=== PATIENT | female | born 1980 | race Caucasian/White ===

== ENCOUNTER 2024-06-07 16:59 | Emergency (ER) | payer SELFPAY ==
[2024-06-07 17:04] VITALS: BP 141/95
[2024-06-07 17:17] LABS: % Basophils 0.5 % (0-2); % Eosinophils 1.2 % (0-6); % Immature Granulocytes 0.3 % (0-0.5); % Lymphocytes 28.5 % (20.5-51.1); % Monocytes 5.8 % (1.7-9.3); % Neutrophils 63.7 % (42.2-75.2); Absolute Basophils 0.1 10^3/uL (0-0.2); Absolute Eosinophils 0.1 10^3/uL (0-0.7); Absolute Monocytes 0.6 10^3/uL (0.1-0.6); Absolute Neutrophils 6.7 10^3/uL (1.4-6.5); Hematocrit 40.7 % (37.0-47.0); Hemoglobin 14.1 g/dL (12.0-16.0); Mean Corp Hgb Conc. 34.6 g/dL (33.0-37.0); Mean Corpuscular Hgb 31.6 pg (27.0-31.0); Mean Corpuscular Volume 91.3 fL (81.0-99.0); Mean Platelet Volume 10.3 fL (7.4-10.4); Nucleated Red Blood Cells % 0 %; Platelet Count 282 10^3/uL (130-400); Red Blood Cell Count 4.46 10^6/uL (4.20-5.40); Red Cell Dist. Width 12.7 % (11.5-14.5); White Blood Cell Count 10.6 10^3/uL (4.8-10.8)
[2024-06-07 17:35] LABS: ALT (SGPT) 19 U/L (0-35); AST (SGOT) 24 U/L (14-36); Albumin 4.8 g/dl (3.5-5.0); Alkaline Phosphatase 41 U/L (38-126); Blood Urea Nitrogen 7 mg/dl (7-17); Carbon Dioxide 25 mmol/L (22-30); Chloride 103 mmol/L (98-107); Glucose 107 mg/dl (70-99); Potassium 3.5 mmol/L (3.5-5.1); Sodium 138 mmol/L (135-145); Total Bilirubin 0.3 mg/dl (0.2-1.3); eGFR > 60.00
[2024-06-07 17:41] LABS: Troponin I < 0.012 ng/ml
[2024-06-07 19:05] VITALS: BP 138/94
--- NOTE | 2024-06-07 19:27 | ED.GENMED ---
History of Present Illness
General
Chief Complaint: Heart Rate Problem
Time Seen by Provider: 06/07/24 18:58
History of Present Illness
History of Present Illness:
44-year-old female presents to the emergency department for evaluation of frequent bouts of heart palpitations and rapid heart rate that been ongoing for the past 8 days. Has had at least 1-2 daily episodes of heart rates that exceed 150. She did
try to take an EKG on her Apple Watch but was unsuccessful. Feels dizzy and short of breath during these episodes. Denies any syncopal events or leg swelling. No chest pain. Denies illicit substance use. Denies any night sweats or weight changes
Past History
Past History
ED Past Medical History: None
ED Past Surgical History: None
Social History
Tobacco: Non-smoker
Alcohol: Occasional
Drug: None
Personal:
Living: with family
Employment: Employed ([employer])
Review of Systems
Review of Systems
Allergies reviewed?: Yes
All Other Systems: ROS reviewed and negative except as documented in HPI and ROS
Phy Exam
Physical Exam
Physical Exam:
GEN: Well appearing, NAD, WDWN
HEENT: Oral mucosa moist, no scleral icterus
Cardiac: Regular rate and rhythm no murmurs
Lung: No respiratory distress, no tachypnea
MSK: No gross deformity or injuries
Skin: Good color, no pallor or jaundice, no rashes
Neuro: AO x3, moves all extremities freely
Psych: Anxious and tearful
Course
Orders/Labs/Results
Orders:
Orders
06/07/24 17:08
Electrocardiogram (*1) Urgent
Reason for Study: Chest Pain
EKG- Treatment ONCE
06/07/24 17:11
Complete Blood Count/With Diff Urgent
Comprehensive Metabolic Panel Urgent
TSH Reflex To Free T4 Urgent
Comment: ADD ON
Troponin I Urgent
06/07/24 19:27
Add On- LAB Urgent
Tests Added?: TSH w reflex
Abnormal Lab Results
06/07/24
17:11
MCH 31.6 H pg
(27.0-31.0)
Absolute Neuts (auto) 6.7 H 10^3/uL
(1.4-6.5)
Glucose 107 H mg/dl
(70-99)
06/07/24 17:11
06/07/24 17:11
Vital Signs
Initial and Last Documented VS:
Initial Vital Signs
Temp Pulse Resp BP Pulse Ox
98.1 F 105 20 141/95 99
06/07/24 17:04 06/07/24 17:04 06/07/24 17:04 06/07/24 17:04 06/07/24 17:04
Last Documented Vital Signs
Temp Pulse Resp BP Pulse Ox
98.1 F 71 10 107/72 100
06/07/24 17:04 06/07/24 19:37 06/07/24 19:37 06/07/24 19:37 06/07/24 19:37
MDM/Problems Addressed
MDM/Problems Addressed:
Patient's telemetry monitoring and EKG were unrevealing here. Unfortunately she did not capture an arrhythmia on her Apple watch. I given the option of cardiology outpatient follow-up with or without starting her on beta-blockers, she would prefer
beta-blockade at this time. Will start low-dose metoprolol, again recommend to the patient she follow-up with cardiology for Holter monitor given the persistence of her symptoms
Comment
Comment:
EKG independently interpreted by me shows a normal sinus rhythm at a rate of 80 with a mild sinus arrhythmia, no ST changes concerning for ischemia, QTc of 438
*Critical Care Note
Total Time (30-74mins, 75-104mins- exclusive of procedures): Not Applicable
ED Attending Note
-
Portions of this chart may have been created with voice recognition software.� Occasional wrong word or��sound alike� substitutions may have occurred due to the inherent limitations of voice recognition software.
Discharge Plan
Departure
Patient Disposition: Home (Routine Discharge)
Date of Disposition: 06/07/24
Time of Disposition: 19:28
Patient with high blood pressure during this ER visit?: No
Discharge Problem:
Heart palpitations
Instructions: Palpitations (DC)
Prescriptions:
New
metoprolol succinate 25 mg tablet extended release 24 hr
25 mg PO DAILY Qty: 30 0RF
No Action
TABLET
1 tab PO DAILY
cyclobenzaprine 10 MG tablet
10 mg PO TIDPRN PRN (Reason: pain/muscle spasm) Qty: 10 0RF
alprazolam 0.25 MG tablet
0.25 mg PO Q8HPRN PRN (Reason: panic attack) Qty: 6 0RF
Referrals:
Shaheen Villanueva MD [Active] -
NONE,* [Active] -
Activity Restrictions/Additional Instructions:
Follow up with cardiology for a Holter Monitor
Interventions
Interventions:
*Risk Screen - Suicide Last Done: 06/07/24 17:04
*General Assessment Last Done: 06/07/24 17:04
*Neglect/Abuse Screening Last Done: 06/07/24 17:04
ED- Fall Risk Assessment Last Done: 06/07/24 19:41
*ED COVID-19 Vaccine History Last Done: 06/07/24 19:41
*Nursing Disposition Last Done: 06/07/24 19:41
ED- Cardiac Assessment Last Done: 06/07/24 19:10
ED- Pulmonary Assessment Last Done: 06/07/24 19:10
Discharge Date and Time
Discharge Date/Time: 06/07/24 19:41
Print Language: GEORGIAN
[2024-06-07 19:37] VITALS: BP 107/72
[2024-06-07 20:41] LABS: TSH Reflex To Free T4 1.27 uIU/ml (0.47-4.68)
== END 2024-06-07 19:41 | disposition home or self-care (01) ==
LOC: EMR 16:59
PROVIDERS: EMERGENCY PHYSICIAN Emergency Medicine; FAMILY PHYSICIAN Family Medicine
DX: R00.2 Palpitations (principal); R42 Dizziness and giddiness; R06.02 Shortness of breath
CPT/HCPCS: 99283; 80053; 84443; 84484; 85025; 93005

== ENCOUNTER → 2024-08-06 12:34 | Outpatient (REF) | payer OTHER, SELFPAY | LOC: RCS 12:34 | PROVIDERS: ATTENDING PHYSICIAN Internal Medicine Cardiovascular Disease; FAMILY PHYSICIAN Family Medicine | DX: R00.2 Palpitations (principal); R55 Syncope and collapse | CPT/HCPCS: 93017 ==

== ENCOUNTER → 2024-08-13 12:44 | Outpatient (REF) | payer OTHER, SELFPAY | LOC: HWRCS 12:44 | PROVIDERS: ATTENDING PHYSICIAN Internal Medicine Cardiovascular Disease; FAMILY PHYSICIAN Family Medicine | DX: R00.2 Palpitations (principal); R55 Syncope and collapse | CPT/HCPCS: 93306 ==